=== PATIENT | female | born 1950 | race Two or more races ===

== ENCOUNTER 2017-07-08 08:42 | Outpatient (CLI) | payer OTHER | END 2017-07-08 08:48 | disposition home or self-care (01) | LOC: RAD 501 08:42 | DX: I10 Essential (primary) hypertension (principal) ==

== ENCOUNTER 2020-10-06 05:43 | Emergency (ER) | payer OTHER ==
[~2020-10-06] VITALS: Ht 154.9 cm; Wt 95.3 kg
[2020-10-06] MEDS ORDERED: HYZAAR 100-12.1 EACH (06:02)
[2020-10-06] MEDS ORDERED: CLARITIN5 MG (06:03)
[2020-10-06] MEDS ORDERED: SINGULAIR10 MG (06:03)
[2020-10-06] MEDS ORDERED: METFORMIN HCL500 M3 (06:03)
[2020-10-06] MEDS ORDERED: MONTELUKAST SODI4 M1 (06:03)
[2020-10-06] MEDS ORDERED: GLIMEPIRIDE4 M1 (06:03)
[2020-10-06] MEDS ORDERED: PERCOGESIC EXT1 EACH PO (06:27)
== END 2020-10-06 06:51 | disposition home or self-care (01) ==
LOC: ER 05:43
DX: I80.02 Phlebitis and thrombophlebitis of superficial vessels of left lower extremity (principal); M79.605 Pain in left leg

== ENCOUNTER 2021-01-27 13:55 | Outpatient (CLI) | payer OTHER ==
[~2021-01-27 13:55] MED LIST: CLARITIN5 MG; GLIMEPIRIDE4 M1; HYZAAR 100-12.1 EACH; METFORMIN HCL500 M3; MONTELUKAST SODI4 M1; PERCOGESIC EXT1 EACH PO; SINGULAIR10 MG
== END 2021-01-27 14:15 | disposition home or self-care (01) ==
LOC: PPH VACUNA 13:55
PROVIDERS: ATTEND Emergency Medicine Pediatric Emergency Medicine
DX: Z23 Encounter for immunization (principal)

== ENCOUNTER 2021-07-24 09:00 | Outpatient (CLI) | payer OTHER | END 2021-07-24 09:15 | disposition home or self-care (01) | LOC: PPH VACUNA 09:00 | PROVIDERS: ATTEND Emergency Medicine Pediatric Emergency Medicine | DX: Z23 Encounter for immunization (principal) ==

== ENCOUNTER 2023-03-04 08:44 | Outpatient (CLI) | payer OTHER | END 2023-03-04 08:56 | disposition home or self-care (01) | LOC: MAMO-SONO 08:44 | PROVIDERS: ATTEND Internal Medicine Geriatric Medicine | DX: Z12.31 Encounter for screening mammogram for malignant neoplasm of breast (principal) ==

== ENCOUNTER 2023-03-14 13:30 | Outpatient (CLI) | payer OTHER | END 2023-03-14 13:43 | disposition home or self-care (01) | LOC: NUCLEAR 13:30 | PROVIDERS: ATTEND Internal Medicine Geriatric Medicine | DX: M15.0 Primary generalized (osteo)arthritis (principal); M81.0 Age-related osteoporosis without current pathological fracture ==

== ENCOUNTER 2023-03-22 09:07 | Outpatient (CLI) | payer OTHER | END 2023-03-22 09:15 | disposition home or self-care (01) | LOC: MRI 09:07 | PROVIDERS: ATTEND Internal Medicine Geriatric Medicine | DX: M23.206 Derangement of unspecified meniscus due to old tear or injury, right knee (principal); M23.200 Derangement of unspecified lateral meniscus due to old tear or injury, right knee; M17.11 Unilateral primary osteoarthritis, right knee | CPT/HCPCS: 73718 ==

== ENCOUNTER 2023-07-29 10:55 | Outpatient (CLI) | payer OTHER | END 2023-07-29 10:58 | disposition home or self-care (01) | LOC: MRI 10:55 | PROVIDERS: ATTEND Chiropractor | DX: M51.26 Other intervertebral disc displacement, lumbar region (principal) | CPT/HCPCS: 72148 ==